=== PATIENT | female | born 1980 | race Caucasian/White ===

== ENCOUNTER 2021-10-04 19:14 | Emergency (ER) | payer OTHER ==
[~2021-10-04] VITALS: Ht 170.2 cm; Wt 95.5 kg
[2021-10-04 19:16] VITALS: BP 140/76
[2021-10-04] MEDS ORDERED: OMEP10CASR PO (19:38)
[2021-10-04] MEDS ORDERED: NOXI1TAB PO (19:38)
[2021-10-04] MEDS ORDERED: CLON0.5T17 PO (19:38)
== END 2021-10-04 22:44 | disposition home or self-care (01) ==
LOC: M ED 19:14
DX: S86.002A Unspecified injury of left Achilles tendon, initial encounter (principal); W01.0XXA Fall on same level from slipping, tripping and stumbling without subsequent striking against object, initial encounter; F41.9 Anxiety disorder, unspecified; Y92.9 Unspecified place or not applicable; Y93.9 Activity, unspecified; Y99.9 Unspecified external cause status